=== PATIENT | female | born 1965 | race Caucasian/White ===

== ENCOUNTER → 2018-01-13 | Outpatient (CLI) | payer BC ==
--- NOTE | 2018-01-13 09:09 | US ---
EXAMINATION TYPE: US abdomen complete DATE OF EXAM: 01/13/2018 COMPARISON: CT 01/01/2010 CLINICAL HISTORY: D18.09 Hemangioma. EXAM MEASUREMENTS: Liver Length: 14.8 cm Gallbladder Wall: 0.2 cm CBD: 0.5 cm Spleen: 9.5 cm Right Kidney: 9.3 x 5.7 x 4.4 cm Left Kidney: 9.8 x 5.3 x 5.4 cm Pancreas: hyperechoic Liver: partially obscured by overlying bowel gas; hyperechoic oval masses are noted/ seen at right d ome = 1.7 x 1.3 x 1.9cm and at posterior right lobe =0.9 x 0.8 x 0.8cm. On the prior examination on t he solitary posterior right hepatic lobe lesion was seen measuring 1.1 x 1.4 cm. Gallbladder: wnl Evidence for sonographic De La Cruz's sign: no CBD: wnl Spleen: wnl Right Kidney: hyperechoic round mass at mid cortex = 0.8 x 0.7 x 0.7cm most compatible with a benign angiomyolipoma as this is unchanged from the prior exam of 2009 Left Kidney: wnl Upper IVC: wnl Abd Aorta: wnl Exam is limited by overlying bowel gas IMPRESSION: 1. Two hyperechoic hepatic masses measuring 1.9 and 0.9 cm. Only a solitary hepatic lesion was seen o n the exam of 01/01/2010. In a patient without known background liver disease is most commonly represen t hemangiomas, however given the increased interval growth of the large new smaller lesion three-phas e abdominal CT is recommended for further characterization. 2. 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
== END | disposition home or self-care (01) ==
LOC: RADUSWWP 07:03
PROVIDERS: ATTEND Internal Medicine
DX: D17.71 Benign lipomatous neoplasm of kidney (principal); R16.0 Hepatomegaly, not elsewhere classified
CPT/HCPCS: 76700

== ENCOUNTER → 2018-01-27 | Outpatient (CLI) | payer BC ==
--- NOTE | 2018-01-27 09:51 | CT ---
EXAMINATION TYPE: CT abdomen wo/w con DATE OF EXAM: 01/27/2018 HISTORY: Abn US, hemangioma CT DLP: 2035mGycm Automated Exposure Control for Dose Reduction was Utilized. CONTRAST: CT scan of the abdomen was performed without and with IV Contrast, patient injected with 100 mL of Is ovue 300. COMPARISON: 01/01/2010 CT and ultrasound dated 01/13/2018. FINDINGS: LUNG BASES: There is a noncalcified right middle lobe pulmonary nodule measuring approximately 5 mm o verall similar to the prior of 2009 and therefore favored to be benign. Minimal bibasilar subsegmenta l atelectasis is also identified. LIVER/GB: The solitary hepatic lesion within segment 7 of the liver measures approximately 1.5 cm on series 5 image 20 and is overall unchanged in size from the prior exam of 2009. No significant enhanc ement is seen on initial postcontrast images in the arterial phase, however on delayed phase there is progressive fill-in of contrast. Given the stability and progressive fill-in this is most compatible with a benign hemangioma. There is no evidence of hepatic steatosis. No new focal hepatic lesions ar e seen. No intrahepatic biliary ductal dilatation. No cholelithiasis. PANCREAS: No significant abnormality is seen. No ductal dilatation. SPLEEN: No significant abnormality is seen. No splenomegaly. ADRENALS: No significant abnormality is seen. KIDNEYS: Kidneys enhance and excrete symmetrically other than a macroscopic fat-containing angiomyoli armond of the right kidney measuring 5 mm. This is unchanged from the prior 2009. No hydronephrosis. BOWEL: No significant abnormality is seen. No bowel dilation. LYMPH NODES: No greater than 1cm abdominal or pelvic lymph nodes are appreciated. Scattered nonenlarg ed submental millimeter mesenteric lymph nodes are similar to the prior 2009. OSSEOUS STRUCTURES: No significant abnormality is seen. IMPRESSION: 1. Stable benign solitary hepatic hemangioma. The second lesion on recent ultrasound may have been ar tifactual and is not redemonstrated by CT. Additionally there appears to be over estimation in size o n the prior ultrasound and the hepatic hemangioma on CT is stable from 2009. 2. Stable benign right renal angiomyolipoma in comparison to exam of 2009.
== END | disposition home or self-care (01) ==
LOC: RADCTMAIN 08:19
PROVIDERS: ATTEND Internal Medicine
DX: D18.03 Hemangioma of intra-abdominal structures (principal); D17.71 Benign lipomatous neoplasm of kidney
CPT/HCPCS: 74170; Q9967

== ENCOUNTER → 2018-10-04 | Outpatient (CLI) | payer BC ==
--- NOTE | 2018-10-05 10:12 | MM ---
Reason for exam: screening (asymptomatic). Last mammogram was performed 1 year and 2 months ago. History: Patient is postmenopausal and had first child at age 33. Physical Findings: A clinical breast exam by your physician is recommended on an annual basis and results should be correlated with mammographic findings. MG Screening Mammo w CAD Bilateral CC and MLO view(s) were taken. Prior study comparison: August 02, 2017, bilateral MG screening mammo w CAD. September 18, 2013, bilateral digital screening mammo w/CAD. The breast tissue is heterogeneously dense. This may lower the sensitivity of mammography. There is no discrete abnormality. No significant changes when compared with prior studies. ASSESSMENT: Negative, BI-RAD 1 RECOMMENDATION: Routine screening mammogram of both breasts in 1 year.
== END | disposition home or self-care (01) ==
LOC: RADMAMWWP 08:06
PROVIDERS: ATTEND Internal Medicine
DX: Z12.31 Encounter for screening mammogram for malignant neoplasm of breast (principal)
CPT/HCPCS: 77067

== ENCOUNTER → 2019-04-20 | Outpatient (CLI) | payer BC ==
--- NOTE | 2019-04-20 11:15 | US ---
EXAMINATION TYPE: US abdomen complete DATE OF EXAM: 04/20/2019 COMPARISON: Ultrasound 01/13/2018, CT abdomen 01/27/2018 CLINICAL HISTORY: D18.09 HEMANGIOMA OF OTHER SITES. Hemangioma EXAM MEASUREMENTS: Liver Length: 14.4 cm Gallbladder Wall: .3 cm CBD: .4 cm Spleen: 9.5 cm Right Kidney: 10.2 x 4.7 x 3.4 cm Left Kidney: 10.5 x 4.8 x 4.1 cm Pancreas: Obscured by bowel gas Liver: Three echogenic areas seen largest measuring 1.8 x 1.8 x 2.2cm. This can be compatible with he mangioma. Previous ultrasound measurements however slightly smaller measuring 1.7 x 1.9 1.3 cm. Third hyperechoic lesion may be new. Gallbladder: wnl Evidence for sonographic De La Cruz's sign: No CBD: wnl Spleen: wnl Right Kidney: Area seen in previous not visualized on today's exam. Left Kidney: wnl Upper IVC: wnl Abd Aorta: wnl IMPRESSION: 1. Echogenic foci within the liver could be compatible with hemangioma. However, the largest lesion h as increased in size. Recommend repeat contrast CT to evaluate for hemangioma.
== END | disposition home or self-care (01) ==
LOC: RADUSWWP 09:02
PROVIDERS: ATTEND Internal Medicine
DX: K76.9 Liver disease, unspecified (principal); D18.09 Hemangioma of other sites
CPT/HCPCS: 76700

== ENCOUNTER → 2019-05-09 | Outpatient (CLI) | payer BC ==
--- NOTE | 2019-05-09 09:56 | CT ---
EXAMINATION TYPE: CT abdomen w con DATE OF EXAM: 05/09/2019 COMPARISON: 09/17/2017 and ultrasound 04/20/2019. HISTORY: 54 year-old female follow-up Hemangioma TECHNIQUE: Contiguous axial scanning of the abdomen following administration of 100 ml Omnipaque 300 IV contrast. 80sec and 5 minute imaging was utilized. Coronal/sagittal reconstructions performed. CT DLP: 646.5 mGycm Automated exposure control for dose reduction was used. FINDINGS: Heart normal size without pericardial effusion. Some strandy atelectasis at the left base without ple ural effusion. Redemonstrated 1.8 cm hypodense lesion segment 7 posterior right hepatic lobe, not significantly reyes ged from prior exam. This likely corresponds to the echogenic lesion on recent 04/20/2019 ultrasound m easured at 2.2 cm. The delayed scan shows the lesion to be less apparent suggesting some fill in but the configuration of enhancement is not classic for hemangioma. Small 7 mm hypodense lesion adjacent to the gallbladder fossa is also unchanged. This likely correspo nds to the 1 cm echogenic lesion seen on ultrasound. This also becomes less apparent on the delayed i mages. No additional focal liver lesion is seen to correspond to the third lesion which measured 9 mm in the right liver lobe. Portal venous system is patent. No biliary ductal dilatation. Gallbladder, adrenal glands, left kidney, spleen, and pancreas appear within normal limits. Stable subcentimeter cortical cyst lateral right kidney. No dilated small bowel, free fluid, or free air. Stable numerous nonenlarged and borderline to mildly enlarged left abdominal mesenteric lymph nodes m easuring up to 8 mm, refer to coronal image 28 for example. [id number] overall stool burden. No pericolonic inflammatory change. Lower abdomen and pelvis is not imaged. Bones: Degenerative changes lower lumbar spine. IMPRESSION: 1. Stable dominant posterior right liver lobe lesion at 1.[address] This measures 2.2 cm on recent ultrasound. As enhancement characteristics remain indeterminate, consider annual ultrasound surveilla nce. An atypical hemangioma is suspected. 2. Stable second 7 mm lesion along the gallbladder fossa corresponding to a 1 cm echogenic lesion on ultrasound. Also probably hemangioma. 3. The third lesion seen on ultrasound measuring 9 mm in the right lobe is not apparent on CT and may also represent a hemangioma. Again, annual ultrasound surveillance to ensure stability. 4. Stable numerous nonenlarged and borderline to mildly enlarged mesenteric lymph nodes measuring up to 8 mm. This can also be monitored annually.
== END ==
LOC: RADCTMAIN 07:57
PROVIDERS: ATTEND Internal Medicine
DX: K76.9 Liver disease, unspecified (principal); K82.8 Other specified diseases of gallbladder; D18.00 Hemangioma unspecified site; R59.0 Localized enlarged lymph nodes
CPT/HCPCS: 74160; Q9967

== ENCOUNTER → 2020-09-15 | Outpatient (CLI) | payer BC ==
--- NOTE | 2020-09-15 11:48 | BD ---
EXAMINATION TYPE: Axial Bone Density DATE OF EXAM: 09/15/2020 COMPARISON: 08/02/2017 CLINICAL HISTORY: 55-year-old female postmenopausal screening Height: 5 FT 7 IN Weight: 190 FRAX RISK QUESTIONS: Alcohol (3 or more units per day): NO Family History (Parent hip fracture): NO Glucocorticoids (More than 3mos): NO (Ex: prednisone, prednisolone, methylprednisolone, dexamethasone, and hydrocortisone). History of Fracture in Adulthood: YES Secondary Osteoporosis: 1. Type 1 Diabetes: NO 2. Hyperthyroidism: NO 3. Menopause before 45: NO 4. Malnutrition: NO 5. Chronic liver disease: NO Rheumatoid Arthritis: NO Current Tobacco Use: NO RISK FACTORS HISTORY OF: History of Wrist Fracture: LEFT WRIST When: 1985 Family History of Osteoporosis: NO Active: YES Diet low in dairy products/other sources of calcium: NO Postmenopausal woman: AGE 46 Take estrogen and/or progesterone medications: NONE Lost more than 2 inches in height since high school: NO MEDICATIONS: Additional Medications: NONE Additional History: EXAM MEASUREMENTS: Bone mineral densitometry was performed using the N(i)² System. Bone mineral density as measured about the Lumbar spine is: ----- L1-L4(G/cm2): 1.225 T Score Values are as follows: ----- L2: 0.3 ----- L3: 0.4 ----- L4: 0.7 ----- L1-L4: 0.4 Bone mineral density has: DECREASED -12.6 % since study of: 2016 Bone mineral density about the R hip (g/cm2): 0.853 Bone mineral density about the L hip (g/cm2): 0.879 T Score values are as follows: -----R Neck: -1.3 -----L Neck: -1.1 -----R Total: -0.6 -----L Total: 0.4 Bone mineral density has: DECREASED -5.5 % since study of: 2016 IMPRESSION: Osteopenia (T Score between -2.5 and -1). There is slightly increased risk of fracture and the patient may be considered for treatment. Re-Screen 2-5 years. NOTE: T-SCORE=SD OF THE YOUNG ADULT MEAN.
--- NOTE | 2020-09-16 14:44 | MM ---
Reason for exam: screening (asymptomatic). Last mammogram was performed 1 year and 11 months ago. History: Patient is postmenopausal and had first child at age 33. Took hormonal contraceptives for 2 years. Physical Findings: A clinical breast exam by your physician is recommended on an annual basis and results should be correlated with mammographic findings. MG Screening Mammo w CAD Bilateral CC and MLO view(s) were taken. Prior study comparison: October 04, 2018, bilateral MG screening mammo w CAD. August 02, 2017, bilateral MG screening mammo w CAD. There are scattered fibroglandular densities. No significant changes when compared with prior studies. ASSESSMENT: Benign, BI-RAD 2 RECOMMENDATION: Routine screening mammogram of both breasts in 1 year.
== END | disposition home or self-care (01) ==
LOC: RADMAMWWP 08:21
PROVIDERS: ATTEND Internal Medicine
DX: Z12.31 Encounter for screening mammogram for malignant neoplasm of breast (principal); M85.80 Other specified disorders of bone density and structure, unspecified site; M81.0 Age-related osteoporosis without current pathological fracture
CPT/HCPCS: 77067; 77080

== ENCOUNTER → 2021-12-25 | Outpatient (CLI) | payer BC ==
--- NOTE | 2021-12-25 13:46 | CA ---
Exercise Stress Test Report Name: Layne Baptiste Exam Date: 12/25/2021 08:47 Exam Location: [place] Stress Ht (in): 67 Wt (lb): 170 BSA: 1.89 Ordering Phys: Akua Mckoy MD Referring Phys: ,, Technologist: Ajay Barcenas Age: 56 Gender: F : 1965 Procedure CPT: Indications: R07.9 chest pain unspecified ICD-10 Codes: Patient History: Chest Pain Medications: Zertec, Multi Vitamin Meds past 24 hrs: Pretest Chest Pain: STRESS TEST Joseph Protocol Exercise Duration (min:sec): 07:[address] Depressions (mm): Angina Score: Pat Score: Resting HR (bpm): 114 Peak HR (bpm): 159 Resting BP (mmHg): 152 / 95 Peak BP (mmHg): 213 / 116 MPHR: 162 Target HR: 138 % MPHR: 98 METS: 8.9 Total Dose: Peak Dose: Atropine: Double Product: 26309 BP Response: Stress Termination: Reached target heart rate Stress Symptoms: No Symptoms Stress Summary: ECG ANALYSIS Resting ECG: Stress ECG: CONCLUSIONS Baseline EKG revealed normal sinus rhythm without significant ST-T changes. Patient walked for 7 minutes 20 seconds and achieved a maximal heart rate of 159 bpm which is available 85% of predicted maximal. There was no angina or any significant arrhythmia. EKG did not reveal any ST segment changes to indicate ischemia. By EKG criteria this is a negative stenosis with limited exercise capacity Dr. Hannah Parra MD (Electronically Signed) Final Date: 25 December 2021 13:45
--- NOTE | 2021-12-28 12:13 | MM ---
Reason for exam: screening (asymptomatic). Last mammogram was performed 1 year and 3 months ago. History: Patient is postmenopausal and had first child at age 33. Took hormonal contraceptives for 2 years. Physical Findings: A clinical breast exam by your physician is recommended on an annual basis and results should be correlated with mammographic findings. MG Screening Mammo w CAD Bilateral CC and MLO view(s) were taken. Prior study comparison: September 15, 2020, bilateral MG screening mammo w CAD. October 04, 2018, bilateral MG screening mammo w CAD. There are scattered fibroglandular densities. No significant changes when compared with prior studies. ASSESSMENT: Benign, BI-RAD 2 RECOMMENDATION: Routine screening mammogram of both breasts in 1 year.
== END | disposition home or self-care (01) ==
LOC: RADNMMAIN 08:25
PROVIDERS: ATTEND Internal Medicine
DX: Z12.31 Encounter for screening mammogram for malignant neoplasm of breast (principal); R07.9 Chest pain, unspecified
CPT/HCPCS: 77067; 93017

== ENCOUNTER → 2024-08-03 | Outpatient (CLI) | payer BC ==
[2024-08-03 12:42] LABS: Appearance,Urine Clear (Clear); Bilirubin,Urine Negative (Negative); Blood,Urine Negative (Negative); Color,Urine Light Yellow; Glucose,Urine (UA) Negative (Negative); Ketones,Urine Negative (Negative); Leukocyte Esterase,Urine Small (Negative); Mucus,Urine Rare /hpf; Nitrite,Urine Negative (Negative); Protein,Urine Trace (Negative); RBC,Urine 1 /hpf (0-5); Specific Gravity,Urine 1.025 (1.001-1.035); Squamous Epithelial Cell,Urine 1 /hpf (0-4); Urobilinogen,Urine <2.0 mg/dL (<2.0); WBC,Urine 2 /hpf (0-5)
[2024-08-03 19:11] LABS: Chol/HDL Ratio 3.51 Ratio
[2024-08-03 19:12] LABS: ALT 18 U/L (8-44); AST 21 U/L (13-35); Albumin 4.4 g/dL (3.8-4.9); Albumin/Globulin Ratio 1.76 Ratio (1.60-3.17); Alkaline Phosphatase 94 U/L (41-126); BUN/Creat Ratio 22.33 Ratio (12.00-20.00); Blood Urea Nitrogen 20.1 mg/dL (9.0-27.0); Calcium 9.4 mg/dL (8.7-10.3); Carbon Dioxide 26.8 mmol/L (21.6-31.8); Chloride 105 mmol/L (96-109); Globulin 2.5 g/dL (1.6-3.3); Glucose 108 mg/dL (70-110); LDL Cholesterol,Calculated 109.7 mg/dL (0.0-131.0); Magnesium 2.1 mg/dL (1.5-2.4); Potassium 4.3 mmol/L (3.5-5.5); Sodium 141 mmol/L (135-145); Total Bilirubin 0.4 mg/dL (0.3-1.2); Total Protein 6.9 g/dL (6.2-8.2); Uric Acid 4.5 mg/dL (2.9-7.7)
[2024-08-03 20:20] LABS: Basophils # (A) 0.03 X 10*3/uL (0.00-0.10); Basophils % (A) 0.5 %; Eosinophils # (A) 0.19 X 10*3/uL (0.04-0.35); Eosinophils % (A) 3.2 %; HCT 42.6 % (37.2-46.3); HGB 13.8 g/dL (12.0-15.0); Lymphocytes # (A) 2.55 X 10*3/uL (0.90-5.00); Lymphocytes % (A) 43.1 %; MCH 29.1 pg (27.0-32.0); MCHC 32.4 g/dL (32.0-37.0); MCV 89.9 FL (80.0-97.0); Mean Platelet Volume 10.1 FL (9.5-12.2); Monocytes # (A) 0.47 X 10*3/uL (0.20-1.00); NRBC Per 100 WBC 0 X 10*3/uL (0.00-0.01); Neutrophils # (A) 2.65 X 10*3/uL (1.80-7.70); Neutrophils % (A) 44.9 %; Platelet Count 311 X 10*3/uL (140-440); RBC 4.74 X 10*6/uL (4.10-5.20); RDW 11.8 % (11.5-14.5); WBC 5.91 X 10*3/uL (4.50-10.00)
== END | disposition home or self-care (01) ==
LOC: LABWHC1 12:03
PROVIDERS: ATTEND Registered Nurse
DX: Z00.00 Encounter for general adult medical examination without abnormal findings (principal); I10 Essential (primary) hypertension; E78.2 Mixed hyperlipidemia; E55.9 Vitamin D deficiency, unspecified; R73.01 Impaired fasting glucose
CPT/HCPCS: 36415; 80053; 80061; 81001; 82306; 83036; 83735; 84443; 84550; 85025

== ENCOUNTER → 2024-08-31 | Outpatient (CLI) | payer BC ==
--- NOTE | 2024-09-03 08:19 | MM ---
Reason for Exam: Screening (asymptomatic). Last mammogram was performed 2 year(s) and 9 month(s) ago. Patient History: Menarche at age 10. First Full-Term at age 33. Late child-bearing (after 30). Postmenopausal. Patient used Hormonal Contraceptives for 2 years. Risk Values: Morenita 5 year model risk: 2.0%. NCI Lifetime model risk: 9.7%. Prior Study Comparison: 10/04/2018 Bilateral Screening Mammogram, [facility]. 09/15/2020 Bilateral Screening Mammogram, [facility]. 12/25/2021 Bilateral Screening Mammogram, [facility]. Tissue Density: There are scattered areas of fibroglandular density. Findings: Analyzed By CAD. Right breast: There is no suspicious group of microcalcifications or new suspicious mass. Left breast: There is no suspicious group of microcalcifications or new suspicious mass. Overall Assessment: Negative, BI-RAD 1 Management: Screening Mammogram of both breasts in [address] [facility] will attempt to contact patient to return for supplemental views and ultrasound if indicated. Patient should continue monthly self-breast exams. A clinical breast exam by your physician is recommended on an annual basis. This exam should not preclude additional follow-up of suspicious palpable abnormalities. Note on Morenita scores and lifetime risk: 1. A Morenita score greater than 3% is considered moderate risk. If this is the case, consider specialist referral to assess eligibility for a risk reducing agent. 2. If overall lifetime risk for the development of breast cancer is 20% or higher, the patient may qualify for future screening with alternating mammogram and breast MRI. [facility], , 09/03/2024 8:16 AM. Electronically signed and approved by: Jose Becerra DO
== END | disposition home or self-care (01) ==
LOC: RADMAMWWP 08:34
PROVIDERS: ATTEND Internal Medicine
DX: Z12.31 Encounter for screening mammogram for malignant neoplasm of breast (principal); Z78.0 Asymptomatic menopausal state; R92.323 Mammographic fibroglandular density, bilateral breasts
CPT/HCPCS: 77067